=== PATIENT | male | born 1955 | race Asian ===

== ENCOUNTER 2023-05-15 07:32 | Day surgery (SDC) | payer OTHER ==
[~2023-05-15] VITALS: Ht 172.7 cm; Wt 73.0 kg
[2023-05-15 07:11] VITALS: O2SAT 99
[2023-05-15] MEDS ORDERED: ONDANSETRON HCL 4 MG/2 ML VIAL ONE (07:33)
[2023-05-15] MEDS ORDERED: LIDOCAINE 2%, 20 ML MDV ONE (07:33)
[2023-05-15] MEDS ORDERED: SUGAMMADEX SODIUM 200 MG/2 ML VIAL IV ONE (07:33)
[2023-05-15] MEDS ORDERED: DEXAMETHASONE SOD PHOSPHATE 4 MG/ML VIAL ONE (07:33)
[2023-05-15] MEDS ORDERED: fentaNYL CITRATE 250 MCG/5 ML AMP ONE (07:33)
[2023-05-15] MEDS ORDERED: MUPIROCIN 1 GM OIN.PF.APP NS ONE (07:33)
[2023-05-15] MEDS ORDERED: MIDAZOLAM HCL 5 MG/ML VIAL (VERSED) IV ONE (07:33)
[2023-05-15] MEDS ORDERED: DESFLURANE 15 MIN GAS INH ONE (07:33)
[2023-05-15] MEDS ORDERED: OXYMETAZOLINE HCL 0.05% NASAL SPRAY NS ONE (07:33)
[2023-05-15] MEDS ORDERED: PROPOFOL 200MG/ 20ML VIAL (DIPRIVAN) IV ONE (07:33)
[2023-05-15] MEDS ORDERED: NS IRRIG SOLN 1000 ML IR ONE (07:33)
[2023-05-15] MEDS ORDERED: ROCURONIUM BROMIDE 10 MG/ML (ZEMURON) ONE (07:33)
[2023-05-15] MEDS ORDERED: LIDOCAINE/EPI 1% 1:100000 20 ML VIAL ONE (07:33)
[2023-05-15] MEDS ORDERED: NS 1000 ML IV.SOLN IV ONE (07:33)
[2023-05-15] MEDS ORDERED: ACETAMINOPHEN I.V. 1000 MG 100 ML IV ONE (07:45)
[2023-05-15] MEDS ORDERED: MEPERIDINE HCL/PF 25 MG/ML DISP.SYRIN IVP PRN (08:30)
[2023-05-15] MEDS ORDERED: hydrALAZINE HCL 20 MG/ML VIAL IVP PRN (08:30)
[2023-05-15] MEDS ORDERED: HYDROmorphone 1 MG/ML INJ. CARTRIDGE IVP PRN ×2 (08:30)
[2023-05-15] MEDS ORDERED: LABETALOL 100 MG/ 20ML VIAL IVP PRN (08:30)
[2023-05-15] MEDS ORDERED: METOCLOPRAMIDE HCL 10 MG/2 ML VIAL IVP PRN (08:30)
[2023-05-15] MEDS ORDERED: LR 1,000 ML IV SCH (08:30)
[2023-05-15] MEDS ORDERED: MIDAZOLAM HCL 2 MG/2 ML VIAL (VERSED) IVP PRN (08:30)
[2023-05-15 12:23] VITALS: BP_SYST 122; PULSE 71; RESP 18
== END 2023-05-15 12:40 | disposition home or self-care (01) ==
LOC: SDS 07:32 → SMU 07:32 → SDS 12:40
PROVIDERS: ATTEND Otolaryngology
DX: J34.89 Other specified disorders of nose and nasal sinuses (principal); J34.2 Deviated nasal septum; D38.5 Neoplasm of uncertain behavior of other respiratory organs; J34.3 Hypertrophy of nasal turbinates; K21.9 Gastro-esophageal reflux disease without esophagitis; E78.00 Pure hypercholesterolemia, unspecified; H68.101 Unspecified obstruction of Eustachian tube, right ear; E11.49 Type 2 diabetes mellitus with other diabetic neurological complication; H90.3 Sensorineural hearing loss, bilateral; Z79.899 Other long term (current) drug therapy
CPT/HCPCS: 31256; 82962; 88304; 88311; 69436; 30140; 30520; J3490; J1100; J2001; J2250; J2405; J2704; J3010; J7030; J0131; 82948; L8699

== ENCOUNTER 2024-02-05 09:34 | Day surgery (SDC) | payer OTHER ==
[~2024-02-05] VITALS: Ht 170.2 cm; Wt 74.4 kg
[2024-02-05 13:13] VITALS: BP_SYST 112; PULSE 63; RESP 18; TEMP 97.6; O2SAT 99
== END 2024-02-08 11:53 | disposition home or self-care (01) ==
LOC: SDS 09:34 → SMU 09:46 → SDS 02-08 11:53
PROVIDERS: ATTEND Otolaryngology
DX: H68.101 Unspecified obstruction of Eustachian tube, right ear (principal); Z53.8 Procedure and treatment not carried out for other reasons; H90.3 Sensorineural hearing loss, bilateral; E11.9 Type 2 diabetes mellitus without complications; K21.9 Gastro-esophageal reflux disease without esophagitis; Z88.3 Allergy status to other anti-infective agents; Z98.890 Other specified postprocedural states; Z79.84 Long term (current) use of oral hypoglycemic drugs; Z79.899 Other long term (current) drug therapy
CPT/HCPCS: 82948

== ENCOUNTER 2024-02-12 07:02 | Day surgery (SDC) | payer OTHER ==
[~2024-02-12] VITALS: Ht 170.2 cm; Wt 68.7 kg
[2024-02-12] MEDS ORDERED: NS IRRIG SOLN 1000 ML IR ONE (09:10)
[2024-02-12] MEDS ORDERED: SEVOFLURANE 15 MIN GAS INH ONE (09:10)
[2024-02-12] MEDS ORDERED: MIDAZOLAM HCL 2 MG/2 ML VIAL (VERSED) ONE (09:10)
[2024-02-12] MEDS ORDERED: CIPRO 0.3%/DEXAMETH 0.1% OTIC DRP 7.5 ML ONE (09:10)
[2024-02-12] MEDS ORDERED: DEXAMETHASONE SOD PHOSPHATE 4 MG/ML VIAL ONE (09:10)
[2024-02-12] MEDS ORDERED: fentaNYL CITRATE/PF 100 MCG/2 ML AMP ONE (09:10)
[2024-02-12] MEDS ORDERED: PROPOFOL 200MG/ 20ML VIAL (DIPRIVAN) IV ONE (09:10)
[2024-02-12] MEDS ORDERED: OXYMETAZOLINE HCL 0.05% NASAL SPRAY NS ONE (09:10)
[2024-02-12] MEDS ORDERED: LIDOCAINE JECT 2% PF 100 MG/5ML SYRINGE ONE (09:10)
[2024-02-12] MEDS ORDERED: LR 1,000 ML IV.SOLN IV ONE (09:10)
[2024-02-12] MEDS ORDERED: ONDANSETRON HCL 4 MG/2 ML VIAL ONE (09:10)
[2024-02-12 09:19] VITALS: O2SAT 99
[2024-02-12] MEDS ORDERED: METOCLOPRAMIDE HCL 10 MG/2 ML VIAL IVP PRN (09:45)
[2024-02-12] MEDS ORDERED: LR 1,000 ML IV SCH (09:45)
[2024-02-12] MEDS ORDERED: MEPERIDINE HCL/PF 25 MG/ML DISP.SYRIN IVP PRN (09:45)
[2024-02-12] MEDS ORDERED: HYDROmorphone 1 MG/ML INJ. CARTRIDGE IVP PRN ×2 (09:45)
[2024-02-12 12:58] VITALS: BP_SYST 109; PULSE 67; RESP 16
== END 2024-02-12 12:13 | disposition home or self-care (01) ==
LOC: SMU 07:02 → SDS 07:02
PROVIDERS: ATTEND Otolaryngology
DX: H68.102 Unspecified obstruction of Eustachian tube, left ear (principal); H90.3 Sensorineural hearing loss, bilateral; E11.9 Type 2 diabetes mellitus without complications; Z88.5 Allergy status to narcotic agent; Z90.89 Acquired absence of other organs; Z98.890 Other specified postprocedural states; Z79.84 Long term (current) use of oral hypoglycemic drugs; Z79.899 Other long term (current) drug therapy; Z82.49 Family history of ischemic heart disease and other diseases of the circulatory system; Z83.3 Family history of diabetes mellitus
CPT/HCPCS: 69705; 69436; 82948; J1100; J3465; J2405; J2704; J3010; J7120; C1889